=== PATIENT | female | born 1965 | race Caucasian/White ===

== ENCOUNTER 2017-10-18 12:57 | Emergency (ER) | payer BC, OTHER ==
[~2017-10-18] VITALS: Ht 149.9 cm; Wt 61.7 kg
[2017-10-18 15:07] LABS: PREGNANCY TEST, URINE NEGATIVE (NEGATIVE)
[2017-10-18 15:07] LABS: BASOPHILS % 0.3 % (0.0-1.0); EOSINOPHILS # (AUTO) 0.1 (0.0-0.4); EOSINOPHILS % 1.3 % (0.0-6.0); HEMATOCRIT 40.6 % (34.2-44.1); HEMOGLOBIN 13.9 g/dL (12.0-16.0); LYMPHOCYTES # (AUTO) 2.2 (1.0-3.2); LYMPHOCYTES % 31.5 % (18.0-39.1); MEAN CORPUSCULAR HEMOGLOBIN 29.1 pg (28-32); MEAN CORPUSCULAR HGB CONC 34.2 g/dL (31-35); MEAN CORPUSCULAR VOLUME 85.1 fL (81-99); MONOCYTES # (AUTO) 0.4 (0.2-0.8); MONOCYTES % 5.7 % (4.4-11.3); NEUTROPHILS # (AUTO) 4.3 (2.1-6.9); NEUTROPHILS % 61.1 % (38.7-80.0); PLATELET COUNT 265 x10e3/uL (140-360); RED BLOOD COUNT 4.77 x10e6/uL (3.6-5.1); RED CELL DISTRIBUTION WIDTH 12.4 % (11.7-14.4)
[2017-10-18 15:08] LABS: CLARITY,URINE SL CLOUDY (CLEAR); COLOR,URINE YELLOW (YELLOW); LEUKOCYTE ESTERASE ,URINE TRACE (NEGATIVE)
[2017-10-18 15:09] LABS: BILIRUBIN,URINE NEGATIVE (NEGATIVE); KETONES,URINE NEGATIVE (NEGATIVE); NITRITE,URINE NEGATIVE (NEGATIVE); PROTEIN,URINE DIPSTICK NEGATIVE (NEGATIVE); URINE UROBILINOGEN 1 mg/dL (0.2 - 1)
[2017-10-18 15:22] LABS: ALANINE AMINOTRANSFERASE 15 IU/L (0-55); ALBUMIN/GLOBULIN RATIO 1.2 (0.8-2.0); ALKALINE PHOSPHATASE 83 IU/L (40-150); ANION GAP 11.6 mmol/L (8-16); BLOOD UREA NITROGEN 12 mg/dL (7-26); BUN/CREATININE RATIO 18 (6-25); CARBON DIOXIDE 30 mmol/L (22-29); CHLORIDE 101 mmol/L (98-107); CREATININE, SERUM 0.67 mg/dL (0.57-1.11); EST GLOMERULAR FILTRATION RATE > 60 ML/MIN (60-); GLUCOSE 172 mg/dL (74-118); POTASSIUM 3.6 mmol/L (3.5-5.1); SODIUM 139 mmol/L (136-145)
[2017-10-18 15:31] LABS: RBC,URINE 0-5 /HPF (0-5); WBC,URINE (MAN) 0-5 /HPF (0-5)
[2017-10-18 15:32] LABS: EPITHELIAL CELLS,URINE MANY /LPF; MUCUS,URINE FEW (RARE)
[2017-10-18 15:41] LABS: AMYLASE 47 U/L (25-125); LIPASE 18 U/L (8-78)
[2017-10-18] MEDS ORDERED: MORPHINE SULFATE 2 MG/ML SYR IV STA (18:26)
[2017-10-18] MEDS ORDERED: ONDANSETRON HCL INJ 2 MG/ML VIAL IV STA (18:26)
[2017-10-18] MEDS ORDERED: CLONIDINE HCL 0.1 MG TAB PO STA (19:22)
== END 2017-10-18 20:49 | disposition home or self-care (01) ==
LOC: ER 12:57
DX: R10.12 Left upper quadrant pain (principal); R11.0 Nausea; K59.00 Constipation, unspecified; I10 Essential (primary) hypertension
CPT/HCPCS: 36415; 80053; 81001; 81025; 82150; 83690; 85025; 99283; J2270; J2405

== ENCOUNTER → 2023-05-11 | Day surgery (SDC) | payer BC ==
[~2023-05-11] MED LIST: AMLODIPINE BESY10 MG PO; FENTANYL CITRATE/PF 100MCG/2 ML INJ ONE; JANUMET 50-1,01 EACH PO; JARDIANCE25 MG PO; LACTATED RINGER'S 1,000 ML ONE; MIDAZOLAM HCL 2 MG/2 ML VIAL ONE; OR PHACO EYE KIT ONE; PREOP PHACO EYE KIT ONE; TRESIBA100 UNIT/1 SC; VITAMIN D3 COM1 EACH PO
[2023-05-11 09:12] VITALS: TEMP 97
[2023-05-11 09:32] VITALS: BP 156/76; PULSE 59; RESP 18; O2SAT 99
== END | disposition home or self-care (01) ==
LOC: OR 06:29
PROVIDERS: ATTEND Ophthalmology
DX: H25.11 Age-related nuclear cataract, right eye (principal); I10 Essential (primary) hypertension; E78.5 Hyperlipidemia, unspecified; E11.9 Type 2 diabetes mellitus without complications; Z79.4 Long term (current) use of insulin; Z79.84 Long term (current) use of oral hypoglycemic drugs; Z79.899 Other long term (current) drug therapy
CPT/HCPCS: 36415; 66982; 82948; J2250; J3010; J7121; V2632

== ENCOUNTER 2024-02-03 12:55 | Emergency (ER) | payer BC ==
[~2024-02-03] VITALS: Ht 149.9 cm; Wt 61.7 kg
[~2024-02-03 12:55] MED LIST changes: -FENTANYL CITRATE/PF 100MCG/2 ML INJ ONE; -LACTATED RINGER'S 1,000 ML ONE; -MIDAZOLAM HCL 2 MG/2 ML VIAL ONE; -OR PHACO EYE KIT ONE; -PREOP PHACO EYE KIT ONE
[2024-02-03 13:09] VITALS: PULSE 74; RESP 16; TEMP 98.3; O2SAT 97
[2024-02-03] MEDS ORDERED: NAPROXEN375 MG PO (14:01)
[2024-02-03] MEDS ORDERED: METHOCARBAMOL500 MG PO (14:01)
[2024-02-03] MEDS: KETOROLAC TROMETHAMINE 60 MG/2 ML VIAL IM ONE (14:45)
[2024-02-03] MEDS: DEXAMETHASONE SOD PHOS 10 MG/1 ML VIAL IM ONE (14:45)
== END 2024-02-03 14:51 | disposition home or self-care (01) ==
LOC: ER 13:18
DX: M54.41 Lumbago with sciatica, right side (principal); I10 Essential (primary) hypertension; E11.9 Type 2 diabetes mellitus without complications; Z87.42 Personal history of other diseases of the female genital tract
CPT/HCPCS: 99283; J1100; J1885